=== PATIENT | male | born 1990 | race African-American/Black ===

== ENCOUNTER 2018-02-14 16:39 | Emergency (ER) | payer OTHER ==
[~2018-02-14] VITALS: Ht 185.4 cm; Wt 83.9 kg
[2018-02-14 17:12] VITALS: BP 107/69
[2018-02-14 17:27] LABS: BASOPHILS # (AUTO) 0.1 /CMM (0.0-0.2); BASOPHILS % (AUTO) 0.5 % (0.0-2.0); EOSINOPHILS % (AUTO) 0.4 % (0.0-6.0); HEMATOCRIT 38 % (39-51); LYMPHOCYTES # (AUTO) 1.6 /CMM (0.8-4.8); LYMPHOCYTES % (AUTO) 9.9 % (20.0-44.0); MEAN CORPUSCULAR HGB CONC 34 g/dl (31.0-36.0); MEAN CORPUSCULAR VOLUME 83 fL (80-96); MONOCYTES # (AUTO) 0.8 /CMM (0.1-1.30); NEUTROPHILS # (AUTO) 13.3 /CMM (1.8-8.9); NEUTROPHILS % (AUTO) 84.2 % (43.0-81.0); PLATELET COUNT (AUTO) 204 /CMM (150-450); RED BLOOD CELL COUNT(AUTO) 4.57 MIL/uL (4.5-6.0); WHITE BLOOD COUNT (AUTO) 15.9 K/uL (4.3-11.0)
[2018-02-14] MEDS ORDERED: ACETAMINOPHEN ES 500 MG TABLET ONE (17:27)
[2018-02-14] MEDS ORDERED: ACETAMINOPHEN ES 500 MG TABLET PO ONE (17:30)
[2018-02-14 17:37] LABS: CALCIUM, SERUM 9.4 mg/dL (8.5-10.1); CREATININE 0.9 mg/dL (0.6-1.3); POTASSIUM 4.7 mmol/L (3.5-5.1)
== END 2018-02-14 18:36 | disposition home or self-care (01) ==
LOC: ER 16:43
DX: B34.9 Viral infection, unspecified (principal); Z60.2 Problems related to living alone
CPT/HCPCS: 36415; 71045; 80048; 85025; 99285; A4606; Z7610

== ENCOUNTER 2018-04-08 21:46 | Emergency (ER) | payer OTHER ==
[~2018-04-08] VITALS: Ht 167.6 cm; Wt 93.4 kg
[2018-04-08] MEDS ORDERED: HYDROCODONE/APAP 5/325MG 1 EACH TABLET ONE ×2 (22:29→23:42)
[2018-04-08] MEDS: HYDROCODONE/APAP 5/325MG 1 EACH TABLET PO ONE ×2 (22:42→23:46)
--- NOTE | 2018-04-08 22:43 | NUR ---
bib self; "back pain s/p playing basketball @1230 today". PT BACK FROM XRAY, MEDICATED FOR PAIN. WILL CONT TO MONITOR.
[2018-04-08 23:48] VITALS: BP 121/75
== END 2018-04-08 23:48 | disposition home or self-care (01) ==
LOC: ER 21:48
DX: S39.012A Strain of muscle, fascia and tendon of lower back, initial encounter (principal); Z60.2 Problems related to living alone; X50.1XXA Overexertion from prolonged static or awkward postures, initial encounter; Y93.67 Activity, basketball; Y92.310 Basketball court as the place of occurrence of the external cause; Y99.8 Other external cause status
CPT/HCPCS: 72110-TC; A4606; Z7610

== ENCOUNTER 2018-09-26 14:45 | Emergency (ER) | payer MEDICAID, OTHER ==
[~2018-09-26] VITALS: Ht 185.4 cm; Wt 108.9 kg
[2018-09-26 14:56] VITALS: BP 130/77
== END 2018-09-26 15:20 | disposition home or self-care (01) ==
LOC: ER 14:54
DX: H66.91 Otitis media, unspecified, right ear (principal); Z60.2 Problems related to living alone
CPT/HCPCS: 99283; A4606; Z7610

== ENCOUNTER 2018-12-22 09:32 | Emergency (ER) | payer MEDICAID ==
[~2018-12-22] VITALS: Ht 195.6 cm; Wt 108.9 kg
--- NOTE | 2018-12-22 09:37 | NUR ---
CAME IN FOR LLE PAIN AND TINGLING SENSATION SINCE LAST NIGHT. TO ER BED 10, HOOKED TO MONITOR, PROVIDED W WARM BLANKET, AWAITING MD PUTNAM.
--- NOTE | 2018-12-22 09:43 | NUR ---
DR LANDEROS AT BEDSIDE
--- NOTE | 2018-12-22 09:54 | NUR ---
US TECH AT BEDSIDE
--- NOTE | 2018-12-22 10:23 | NUR ---
Patient discharged to home in stable condition. Written and verbal after care instructions given. Patient verbalizes understanding of instruction.
[2018-12-22 10:26] VITALS: BP 132/52
== END 2018-12-22 10:27 | disposition home or self-care (01) ==
LOC: ER 09:33
DX: M79.18 Myalgia, other site (principal); Z60.2 Problems related to living alone
CPT/HCPCS: 93971-TC